=== PATIENT | male | born 1960 | race Caucasian/White ===

== ENCOUNTER 2022-10-09 10:26 | Emergency (ER) | payer OTHER, SELFPAY ==
[2022-10-09 10:27] VITALS: BP 179/93; PULSE 86; RESP 14; TEMP 36.7; O2SAT 98; BMI 41.6
[2022-10-09] MEDS: Ketorolac 15 MG/ML Vial IM (10:54)
--- NOTE | 2022-10-09 10:54 | EDS_ITS ---
<Statement entered by Domitila Sands MD - 10/09/22 15:20> I have personally performed a face to face assessment of the patient and have reviewed the RODERICK Note. Patient presents with right low back pain radiating down his right leg after doing some yard work. He does have a history of chronic back pain and has had sciatica in the distant past. He had no recent fall or injury to his back. No problems with bowel or bladder control. Patient sitting upright in bed no acute distress. Head and neck examination unremarkable. Heart is regular rate and rhythm. Lung sounds are clear. Abdomen is soft and nontender. Back examination reveals mild tenderness to the right SI joint/sciatic notch. Neuro exam reveals normal strength and sensation throughout. Patient did drive himself to the emergency room. He is given an IM injection of Toradol here. He will be given prescription for analgesics, muscle relaxers, and steroids. We did discuss monitoring his blood sugars. He understands that his blood sugars will go up while he is on prednisone but will decrease again once he stops the medicine. He voices understanding and agreement. Return instructions given. HPI History of Present Illness Chief Complaint: Back Narrative Narrative: Patient presenting today with pain to the right buttocks that radiates down the posterior aspect of his right thigh that he has had for the past 5 days. He reports a history of chronic lower back pain. He was outside doing yard work the day before the pain started. He denies any trauma to his back, bowel/bladder incontinence, saddle paresthesia, fever, and chills. He has been taking ibuprofen with minimal relief of his symptoms. PMH includes hypertension, hyperlipidemia, and diabetes mellitus. [facility] Medical History Chronic back pain Home Medications cyclobenzaprine 10 mg tablet 10 mg PO TID PRN Muscle Spasm 5 days #15 TABLETS 10/09/22 [Rx Last Taken Unknown] hydrocodone-acetaminophen 5-325mg 5mg-325mg 1 tab PO Q4H PRN PRN Pain 3 days #10 TABLETS 10/09/22 [Rx Last Taken Unknown] prednisone 20 mg tablet 40 mg (2 x 20 mg) PO DAILY 5 days #10 tabs 10/09/22 [Rx Last Taken Unknown] Allergy/AdvReac Type Severity Reaction Status Date / Time No Known Allergies Allergy Verified 10/09/22 10:28 Social History Smoking Status: Never smoker ROS ROS ED Constitutional Constitutional ED: Denies chills, fever(s) or sweats Eyes Eyes: Denies blurry vision or diplopia Cardiovascular Cardiovascular: Denies chest pain or palpitations Respiratory/Chest Respiratory/Chest: Denies cough or dyspnea Gastrointestinal Gastrointestinal: Denies abdominal pain, nausea or vomiting Genitourinary Genitourinary ED: Denies dysuria, hematuria or urinary urgency Musculoskeletal Musculoskeletal: Reports back pain; Denies arthralgias or myalgias Integumentary Denies abscess, Abrasions or rash Neurologic Neurologic: Denies paresthesias or weakness EXAM Physical Exam Const Vital Signs: 10/09/22 10:27 Temperature 98.1 F Temperature Source Temporal Pulse Rate 86 Respiratory Rate 14 Blood Pressure 179/93 H Blood Pressure Mean 121 Pulse Ox 98 Oxygen Delivery Method Room Air Positive well nourished, well developed and no apparent distress General Appearance ED: well developed HEENT Reports normocephalic and head/scalp atraumatic Mouth ED: Yes moist mucous membranes normal Eyes PERRL and EOMs intact bilaterally Neck full ROM and supple Chest Wall inspection of chest normal Resp normal respiratory effort and clear to auscultation bilaterally Cardio regular rate and regular rhythm GI soft to palpation, non-tender, non-distended and no masses Back/Spine normal ROM and normal to inspection Extremity normal to inspection and full ROM Neuro oriented x3, CN's II-XII intact bilaterally, moves all extremities, no focal motor deficits and no sensory deficits noted Neuro Narrative: Bilateral patellar and plantar reflex normal Sensorium / Orientation: awake and alert Motor Exam: strength 5/5 throughout Psych mental status grossly normal and thought process normal Skin no rashes or lesions noted and no wounds MDM MDM MDM Narrative Medical decision making narrative: Patient presenting today due to back pain that he has had for the past 5 days that has been worsening. He describes it as pain that starts in his right buttocks and radiates down the posterior aspect of the right thigh. He is well- appearing and in no acute distress. He is able to ambulate. Patient's neurological exam is WNL. He does not have any midline tenderness to his thoracic, lumbar, or sacral spine. Examination is consistent with sciatica versus sacroiliitis. Patient does have chronic back pain and follows with his PCP for this. I do not feel that any imaging is indicated as patient did not have any trauma to his back and examination is not concerning for cauda equina syndrome or spinal abscess. he was given Toradol here for pain. He will be given a prescription for prednisone, Levering, and Flexeril. He has been encouraged to keep an eye on his blood sugar levels due to the prednisone. Discharge Plan Triage Chief Complaint: Back ED Midlevel Provider: Kirsty Wing ED Provider: Domitila Sands Dx/Rx/DC Orders Clinical Impression: Right sided sciatica Instructions: ED Sciatica Prescriptions: New cyclobenzaprine 10 mg tablet 10 mg PO TID PRN (Reason: Muscle Spasm) 5 Days Qty: 15 0RF prednisone 20 mg tablet 40 mg PO DAILY 5 Days Qty: 10 0RF hydrocodone-acetaminophen 5-325 mg tablet 1 tab PO Q4H PRN PRN (Reason: Pain) 3 Days Qty: 10 0RF Primary Care Provider: [facility] Activity Restrictions/Additional Instructions: Please follow-up with your PCP and return for any worsening of your symptoms. Disposition Disposition: Home, Self Care Discharge Date/Time: 10/09/22 11:47
== END 2022-10-09 11:47 | disposition home or self-care (01) ==
PROVIDERS: Emergency Provider Emergency Medicine; Visit Provider Emergency Medicine
DX: M54.31 Sciatica, right side (principal); E11.9 Type 2 diabetes mellitus without complications; I10 Essential (primary) hypertension; E78.5 Hyperlipidemia, unspecified; X58.XXXA Exposure to other specified factors, initial encounter; Y93.89 Activity, other specified; Y92.096 Garden or yard of other non-institutional residence as the place of occurrence of the external cause
CPT/HCPCS: 96372; 99282